=== PATIENT | male | born 1985 | race Caucasian/White ===

== ENCOUNTER 2021-06-27 12:23 | Emergency (ER) | payer SELFPAY ==
[~2021-06-27] VITALS: Ht 167.6 cm; Wt 77.1 kg
[2021-06-27] MEDS ORDERED: TRAMADOL HCL 50 MG TAB PO ONE (13:00)
== END 2021-06-27 14:01 | disposition home or self-care (01) ==
LOC: ER 13:26
DX: R07.89 Other chest pain (principal); M25.512 Pain in left shoulder
CPT/HCPCS: 71046; 99283